=== PATIENT | female | born 1990 | race Caucasian/White ===

== ENCOUNTER 2017-07-30 21:34 | Emergency (ER) | END 2017-07-31 02:48 | disposition left against medical advice (07) ==

== ENCOUNTER 2018-11-13 23:09 | Emergency (ER) | payer MEDICAID ==
[~2018-11-13] VITALS: Ht 139.7 cm; Wt 59.3 kg
[~2018-11-13 23:09] MED LIST: IBUP-1542 PO; TRAM50TA2 PO
[2018-11-13 23:17] VITALS: Ht 139.7 cm; Wt 59.3 kg
--- NOTE | 2018-11-14 02:18 | ERD ---
ER Documentation Chief Complaint Chief Complaint RED, PAINFUL AREA ON R LOWER ABD X'S 3 DAYS HPI This is a 28-year-old female presents to the emergency department with complaints of right lower abdomen painful circular redness for about 3 days. LMP: 3 days ago. G4, . Denies headache, head injury, loss of consciousness, dizziness, neck pain, neck stiffness, throat pain, difficulty swallowing, difficulty breathing lying flat, shoulder pain, chest pain, back pain, abdominal pain, nausea, vomiting, constipation, diarrhea, urinary symptoms, or possibility being , loss of bowel and bladder control, trauma, injury, falls, difficulty walking due to pain, numbness or tingling sensation, calf pain, recent travel, recent major surgery in the last 3 weeks, calf pain, recent long travel, recent exposure to any illness, recent antibiotic use in the last 3 months, fever, chills, seizures. Past medical history: Denies. Surgical history: x3. Social: Denies smoking, use of alcoholic beverages, use of illegal drugs. ROS All systems reviewed and are negative except as per history of present illness. Medications Home Meds Active Scripts Ibuprofen* (Motrin*) 800 Mg Tab, 800 MG PO Q8 PRN for PAIN AND OR ELEVATED TEMP, #30 TAB Prov:MAN REYNOLDS F 11/14/18 Sulfamethoxazole/Trimethoprim* (Bactrim Ds* Tablet) 1 Each Tablet, 1 TAB PO BID for 7 Days, #14 TAB Prov:MAN REYNOLDS F 11/14/18 Cephalexin* (Keflex*) 500 Mg Capsule, 500 MG PO TID for 7 Days, CAP Prov:PASILAMAN CATES F 11/14/18 Tramadol HCl (Tramadol HCl) 50 Mg Tablet, 50 MG PO Q6 PRN for SEVERE PAIN LEVEL 7-10, #7 TAB Prov:ELSA BLANTON NP 06/26/18 Ibuprofen* (Motrin*) 600 Mg Tab, 600 MG PO Q6H PRN for PAIN AND OR ELEVATED TEMP, #30 TAB Prov:ELSA BLANTON BOTTOM CAGER 06/26/18 Reported Medications [none] Unknown Strength No Conflict Check 06/26/18 Allergies Allergies: Coded Allergies: No Known Drug Allergies (Verified Allergy, Unknown, 06/26/18) PMhx/Soc History of Surgery: Yes ( x3) Anesthesia Reaction: No Hx Neurological Disorder: No Hx Respiratory Disorders: No Hx Cardiac Disorders: No Hx Psychiatric Problems: No Hx Miscellaneous Medical Probl: No Hx Alcohol Use: No Hx Substance Use: No Hx Tobacco Use: No Physical Exam Vitals Physical Exam Const: No acute distress Head: Atraumatic Eyes: Normal Conjunctiva. No conjunctival injection. ENT: Normal External Ears, Nose and Mouth. Bilateral ear: TM is not erythematous. No bleeding. No discharge. No hearing loss. No mastoid tenderness. Nose: No nasal flaring. No signs of obstruction. Throat/Lips: No lip swelling. No tongue swelling. Able to control tongue movement. No drooling. Uvula is in midline and non-displaced. Tonsils are + 1 with no redness and no exudates. Tolerating secretions. Patent airway. Speaks full and clear sentences. No tripoding. Neck: Full range of motion. No meningismus. Nuchal rigidity. No signs of meningeal irritation. Resp: Clear to auscultation bilaterally. No retraction noted. No accessory mu scle use in breathing. Cardio: Regular rate and rhythm, no murmurs. Abd: Soft, non tender, non distended. Normal bowel sounds. No abdominal tenderness. Skin: No petechiae. No hives. No vesicular lesions. Circular redness with tenderness that is measuring approximately 2 cm in diameter to right lower abdomen area. No fluctuance. No induration. Back: No midline or flank tenderness Ext: No cyanosis, or edema Neur: Awake and alert. No neurological deficit.. Psych: Normal Mood and Affect Results 24 hrs Current Medications Medications Dose Sig/Chrissy Start Time Status Last (Trade) Ordered Route PRN Stop Time Admin Dose Reason Admin Cephalexin 500 mg ONCE ONCE 11/14/18 DC 11/14/18 (Keflex) PO 02:30 11/14/18 02:29 02:31 Ibuprofen 600 mg ONCE ONCE 11/14/18 DC 11/14/18 (Motrin) PO 02:30 11/14/18 02:29 02:31 Procedures/MDM Diagnostic tests: Clinical exam. Treatment: Motrin. Keflex. Re-evaluation: No episode of emesis here in the emergency department. Denies pain. No abdominal tenderness. Stated that she feels much better at this time and that she is ready to go home. Stated that she is comfortable to go home. Differential diagnosis I have low suspicion for sepsis, acute abdomen, malignancy. Final diagnosis: Abscess. Prescription: Bactrim. Motrin. Keflex. Follow-up with PCP in the next 24-48 hours. Come back here in 3 to 5 days or go to your primary care physician for a possible incision and drainage of abscess. Come back here in the emergency department for any new symptoms or any worsening symptoms. All questions and concerns were answered. Patient and family members verbalized understanding and agreed with plan of care. Hemodynamically stable on discharge. Departure Diagnosis: Primary Impression: Abscess Condition: Stable Additional Instructions: Follow-up with PCP in the next 24-48 hours. Come back here in 3 to 5 days or go to your primary care physician for a possible incision and drainage of abscess. Come back here in the emergency department for any new symptoms or any worsening symptoms. MAN REYNOLDS Nov 14, 2018 02:18
[2018-11-14] MEDS ORDERED: IBUPROFEN 600 MG TAB PO ONE (02:30)
[2018-11-14] MEDS ORDERED: CEPHALEXIN 500 MG CAP PO ONE (02:30)
[2018-11-14] MEDS ORDERED: IBUP800T48 PO (03:03)
[2018-11-14] MEDS ORDERED: SULF1TAB31 PO (03:03)
[2018-11-14] MEDS ORDERED: CEPH-443 PO (03:03)
== END 2018-11-14 04:00 | disposition left against medical advice (07) ==
LOC: FTE 23:09
DX: L02.211 Cutaneous abscess of abdominal wall (principal)
CPT/HCPCS: Z7610 ×2; 99283